=== PATIENT | male | born 1990 | race Native Hawaiian/Other Pacific Islander ===

== ENCOUNTER 2017-12-03 14:34 | Emergency (ER) | payer OTHER, SELFPAY ==
[2017-12-03 14:56] VITALS: BP 133/83; PULSE 100; TEMP 98.3; O2SAT 98
--- NOTE | 2017-12-03 14:56 | C.PDOC ---
History Of Present Illness 27-year-old male, presents to the emergency department with complaints of right big toe pain, swelling, and discharge that is worse for the past few days. Patient has a Hx of chronic ingrown nail. He is requesting for it to be removed, He denies any fevers/chills, deformity or weakness. No other complaints at this time. Time Seen by Provider: 12/03/17 14:40 Chief Complaint (Nursing): Lower Extremity Problem/Injury History Per: Patient History/Exam Limitations: no limitations Past Medical History Reviewed: Historical Data, Nursing Documentation, Vital Signs Vital Signs: Last Vital Signs Temp 98.3 F 12/03/17 14:46 Pulse 100 H 12/03/17 14:46 Resp 185 H 12/03/17 14:46 BP 133/83 12/03/17 14:46 Pulse Ox 98 12/03/17 14:46 - Medical History PMH: Denies: HIV, Chronic Kidney Disease Family History: States: No Known Family Hx - Social History Hx Alcohol Use: No Hx Substance Use: No Review Of Systems Constitutional: Negative for: Fever, Chills Musculoskeletal: Positive for: Foot Pain Neurological: Negative for: Weakness, Numbness Physical Exam - Physical Exam Appears: Well, Non-toxic, No Acute Distress Skin: Normal Color, Warm, No Rash, No Ecchymosis Head: Normacephalic Eye(s): bilateral: PERRL Extremity: Normal ROM (Right foot), Tenderness (around Right big toe, no deformity, no erythema), Capillary Refill (less than 2sec to right foot), No Deformity, Swelling (mild tenderness, edema around nail bed with scant yellow discharge.) Neurological/Psych: Oriented x3, Normal Speech, Normal Motor, Normal Sensation, Normal Reflexes ED Course And Treatment O2 Sat by Pulse Oximetry: 98 Pulse Ox Interpretation: Normal (RA) Progress Note: On re-eval, pt is afebrile, hemodynamicaly stable. Non-toxic. Ambulatory in ED with stable gait. Right foot: exam c/w Right 1st toe ingrown nail infected. FAROM, no neurovascular deficits. Podiatry resident called for consult, nail removed. Pt was advised directly by Podiatry. ref. to F/u with Podiatry Clinic in 1 week for further re-eval/tx. Disposition Counseled Patient/Family Regarding: Diagnosis, Need For Followup, Rx Given - Disposition Referrals: [facility] [Outside] Disposition: HOME/ ROUTINE Disposition Time: 15:28 Condition: STABLE Additional Instructions: Follow up with Podiatry Clinic on 12/13/17 for re-evaluation. take medication as prescribed return to Ed if any new changes. Prescriptions: Amoxicillin/Clavulanate [Augmentin 875 MG-125 MG] 1 tab PO BID #14 tab Instructions: Ingrown Toenail Forms: [employer] (Moroccan) - Clinical Impression Clinical Impression: Ingrowing nail - Scribe Statement The provider has reviewed the documentation as recorded by the Scribe (Chuck Dyer) All medical record entries made by the Scribe were at my direction and personally dictated by me. I have reviewed the chart and agree that the record accurately reflects my personal performance of the history, physical exam, medical decision making, and the department course for this patient. I have also personally directed, reviewed, and agree with the discharge instructions and disposition.
[2017-12-03] MEDS ORDERED: Lidocaine 2% MPF (5 ml) Inj ONE (15:01)
[2017-12-03] MEDS ORDERED: Lidocaine 2% Inj (20ml) INFIL ONE (15:15)
[2017-12-03 15:58] VITALS: RESP 17
--- NOTE | 2017-12-03 16:02 | CP.PCM.CON ---
History of Present Illness - History of Present Illness History of Present Illness: Podiatry Consult Note - Dr. Jimenez 27 y/o male with no significant PMHx seen in ED for complaints of painful ingrown toenail to right foot. States he has noticed pus and swelling to the toe for several days. Admits to having chronic ingrown toenails to both big toenails but has never had them removed. States he tried to cut the nails back himself but this did not help. Denies F/C/N/V/CP/SOB PSHx: denies All: denies SocHx: social EtOH; denies cigarette or illicit drug use Review of Systems - Review of Systems All systems: reviewed and no additional remarkable complaints except (per HPI) Past Patient History - Infectious Disease Hx of Infectious Diseases: None - Tetanus Immunizations Tetanus Immunization: Unknown - Past Medical History & Family History Past Medical History?: No - Past Social History Smoking Status: Never Smoked - CARDIAC Hx Cardiac Disorders: No - PULMONARY Hx Respiratory Disorders: No - NEUROLOGICAL Hx Neurological Disorder: No - HEENT Hx HEENT Problems: No - RENAL Hx Chronic Kidney Disease: No - ENDOCRINE/METABOLIC Hx Endocrine Disorders: No - HEMATOLOGICAL/ONCOLOGICAL Hx Human Immunodeficiency Virus (HIV): No - INTEGUMENTARY Hx Dermatological Problems: No - MUSCULOSKELETAL/RHEUMATOLOGICAL Hx Musculoskeletal Disorders: No Hx Falls: No - GASTROINTESTINAL Hx Gastrointestinal Disorders: No - GENITOURINARY/GYNECOLOGICAL Hx Genitourinary Disorders: No - PSYCHIATRIC Hx Substance Use: No - SURGICAL HISTORY Hx Surgeries: No - ANESTHESIA Hx Anesthesia: No Hx Anesthesia Reactions: No Meds Home Medications: Home Medication List Medication Instructions Recorded Confirmed Type Amoxicillin/Clavulanate [Augmentin 1 tab PO BID #14 tab 12/03/17 Rx 875 MG-125 MG] Allergies/Adverse Reactions: Allergies Allergy/AdvReac Type Severity Reaction Status Date / Time No Known Allergies Allergy Verified 12/03/17 14:44 Physical Exam - Constitutional Appears: Well, Non-toxic, No Acute Distress - Extremities Exam Additional comments: Lower extremity focused exam: Vasc: DP/PT pulses palpable 2/4 B/L. Temperature gradient warm to cool from proximal to distal; increased localized warmth with localized nonpitting edema to distal tip of hallux surrounding medial and lateral nail folds of R foot. CFT < 3 sec to all digits Derm: Ingrowing toenail noted to medial borders of bilateral hallucal toenails, with surrounding erythema <2cm noted to R hallucal nail folds. Mild granuloma formation noted to distal medial aspect of R hallucal toenail. Purulence noted to R hallucal nail borders. No purulence or drainage noted to L hallucal nail. Neuro: Protective sensation grossly intact Ortho: Tenderness to palpation of medial and lateral nail folds of R hallucal toenail. No tenderness to palpation of nail folds of L hallucal toenail. - Neurological Exam Neurological exam: Alert, Oriented x3 - Psychiatric Exam Psychiatric exam: Normal Affect, Normal Mood Results - Vital Signs Recent Vital Signs: Last Vital Signs Temp 98.3 F 12/03/17 14:46 Pulse 100 H 12/03/17 14:46 Resp 17 12/03/17 15:56 BP 133/83 12/03/17 14:46 Pulse Ox 98 12/03/17 15:52 Assessment & Plan - Assessment and Plan (Free Text) Assessment: 27 y/o male with right hallux infected ingrown toenail Plan Pt seen and evaluated in ED Discussed plan with attending Dr. Jimenez All risks, benefits, complications and alternatives to procedure discussed with patient 10cc of 2% Lidocaine plain injected in hallux block fashion to R foot Procedure site prepped with betadine Ehsan drain tourniquet applied and total nail avulsion performed to R hallux toenail Pt tolerated procedure without incident Site cleaned with saline and dressed with betadine, 4x4, and kerlix bandage with surgical shoe dispensed Pt advised that the bandage should remain clean/dry/intact for 48 hours, after which it may be removed and the site should be cleaned daily with 10-15 min warm water/Epsom salt soaks Pt advised to apply triple antibiotic cream with bandaid daily after soaking Pt to follow up in [facility] on 12/13/[address] Jimenez Thank you for this consult
== END 2017-12-03 15:56 | disposition home or self-care (01) ==
LOC: C.ER 14:34
DX: L60.0 Ingrowing nail (principal)